=== PATIENT | male | born 1960 | race Caucasian/White ===

== ENCOUNTER 2022-12-04 15:03 | Emergency (ER) | payer MEDICARE, MEDICAID ==
[2022-12-04 15:34] VITALS: BP 102/50; PULSE 103
== END 2022-12-04 16:32 | disposition home or self-care (01) ==
LOC: JP.ED 15:03
DX: S59.901A Unspecified injury of right elbow, initial encounter (principal); I25.10 Atherosclerotic heart disease of native coronary artery without angina pectoris; J44.9 Chronic obstructive pulmonary disease, unspecified; I10 Essential (primary) hypertension; Z88.2 Allergy status to sulfonamides; Z88.8 Allergy status to other drugs, medicaments and biological substances; Z79.899 Other long term (current) drug therapy; Z87.891 Personal history of nicotine dependence; W23.1XXA Caught, crushed, jammed, or pinched between stationary objects, initial encounter
CPT/HCPCS: 73080-26-RT; 73080-RT; 99283